=== PATIENT | male | born 1955 | race Hispanic/Latino ===

== ENCOUNTER 2023-06-26 14:10 | Outpatient (CLI) | payer MEDICARE | END 2023-06-26 14:11 | disposition home or self-care (01) | LOC: CSHRAD 14:10 | PROVIDERS: ATTEND Family Medicine | DX: M25.571 Pain in right ankle and joints of right foot (principal); M79.89 Other specified soft tissue disorders; M19.071 Primary osteoarthritis, right ankle and foot ==